=== PATIENT | male | born 1965 | race Asian ===

== ENCOUNTER 2024-07-18 12:49 | Emergency (ER) | payer OTHER, SELFPAY ==
[2024-07-18] VITALS (10 sets, daily range): BP systolic 124–160; BP diastolic 65–82; PULSE 59–118; RESP 18; TEMP 36; O2SAT 94–100; BMI 24.2
--- NOTE | 2024-07-18 12:56 | DI.RAD.S_ITS ---
PROCEDURE: XR CHEST 1V INDICATIONS: chest pain TECHNIQUE: One view of the chest was acquired. COMPARISON: None. FINDINGS: Surgical changes and devices: None. Lungs and pleura: Lungs are clear. No pleural effusions or pneumothorax. Mediastinum: Mediastinal contours appear normal. Heart size is normal. Bones and chest wall: No suspicious bony lesions. Overlying soft tissues appear unremarkable. IMPRESSION: No acute cardiopulmonary abnormality is seen. Dictated by: Adrian Urbina M.D. on 07/18/2024 at 13:29 Approved by: Adrian Urbina M.D. on 07/18/2024 at 13:29
--- NOTE | 2024-07-18 13:01 | EKG_ITS ---
[address] [address] Test Date: 2024-07-18 Pat Name: Gareth Wilkerson Department: [facility] Room: Gender: Male Communication And Outreach Manager: HALINA BLUNT : 1965 Requested By: Order Number: [id number] Reading MD: Luis Armando Vogel MD Measurements Intervals [place] Rate: 83 P: 67 NV: 160 QRS: 88 QRSD: 88 T: 74 QT: 366 QTc: 430 Interpretive Statements Normal sinus rhythm Septal infarct , age undetermined Electronically Signed On 07-18-2024 14:10:15 PST by Luis Armando Vogel MD
[2024-07-18 13:08] LABS: Add Manual Diff / Slide Review NO; Basophils Absolute Auto 0 /uL (0-100); Basophils Percent Auto 0.6 % (0-2); Eosinophils Absolute Auto 100 /uL (0-450); Eosinophils Percent Auto 2.2 % (2-4); Hematocrit 43.5 % (41-53); Hemoglobin 15.1 g/dL (13.5-17.5); Lymphocytes Absolute Auto 2000 /uL (1100-4500); Lymphocytes Percent Auto 31.2 % (25-40); Mean Corpuscular HGB Conc 34.6 % (30-36); Mean Corpuscular Hemoglobin 31.4 PG (26-34); Mean Corpuscular Volume 90.6 fL (80-100); Monocytes Absolute Auto 500 /uL (0-900); Monocytes Percent Auto 7.9 % (3-14); Neutrophils Absolute Auto 3700 /uL (1500-7000); Neutrophils Percent Auto 58.1 % (50-75); Platelet Count 339 X10^3/uL (150-400); White Blood Cell Count 6.4 X10^3/uL (4.5-11.0)
[2024-07-18] MEDS: ASPIRIN 81 MG CHEW TAB 324 MG PO (13:08)
[2024-07-18 13:18] LABS: Prothrombin Time 11.8 SECONDS (9.4-12.5)
[2024-07-18 13:19] LABS: Alanine Aminotransferase 21 IU/L (<50); Albumin 4.7 g/dL (3.5-5.0); Albumin Globulin Ratio 1.5 (1.0-2.8); Alkaline Phosphatase 64 U/L (38-126); Aspartate Aminotransferase 33 IU/L (17-59); BUN Creatinine Ratio 14.2 (6-22); Bilirubin Total 0.6 mg/dL (0.2-1.3); Blood Urea Nitrogen 16 mg/dL (9-20); Calcium 9.3 mg/dL (8.4-10.2); Carbon Dioxide 28 mmol/L (22-32); Chloride 103 mmol/L (98-107); Creatine Kinase 125 U/L (55-170); Estimated Glomerular Filt Rate > 60 mL/min (>60); Globulin 3.1 g/dL (1.7-4.1); Glucose 87 mg/dL (70-100); HEMOLYSIS < 15 (0-50); Lipase 94 U/L (23-300); Magnesium 2.2 mg/dL (1.6-2.3); Potassium 3.8 mmol/L (3.4-5.1); Sodium 140 mmol/L (137-145); Total Protein 7.8 g/dL (6.3-8.2)
[2024-07-18 13:20] LABS: PTT Partial Thromboplastin Tim 39 SECONDS (25.1-36.5)
[2024-07-18 13:31] LABS: NT-proBNP (BNP-Adult 18+) < 20 pg/mL (<125); Troponin I < 0.012 ng/mL (0.01-0.034)
--- NOTE | 2024-07-18 15:10 | EKG_ITS ---
[address] [address] [address] [address] Test Date: 2024-07-18 Pat Name: Gareth Wilkerson Department: Room: Gender: Male Automotive Instructor: SILKE : 1965 Requested By: Order Number: [id number] Reading MD: Luis Armando Vogel MD Measurements Intervals [place] Rate: 61 P: 31 ID: 150 QRS: 87 QRSD: 90 T: 76 QT: 392 QTc: 394 Interpretive Statements Normal sinus rhythm Electronically Signed On 07-18-2024 15:26:31 PST by Luis Armando Vogel MD
[2024-07-18 15:57] LABS: Troponin I < 0.012 ng/mL (0.01-0.034)
--- NOTE | 2024-07-18 16:48 | ED_ITS ---
HPI - Chest Pain General Chief Complaint: Chest Pain Stated Complaint: EKG at PCP got sent to ED Time Seen by Provider: 07/18/24 16:48 Source: patient Mode of arrival: Ambulatory Limitations: no limitations History of Present Illness HPI narrative: 59-year-old male without any significant past medical history presents to the ED from home for abnormal EKG, this was performed by his PCP. Patient states that he was having some chest pain lasted approximately no more than 5 minutes but is not having any chest pain currently, states it has been ongoing intermittent for the past 2 weeks. He denies any other symptoms such as headache visual disturbances shortness breath fever chills nausea vomiting abdominal pain or any other GI/ symptoms time. Related Data Allergies Allergy/AdvReac Type Severity Reaction Status Date / Time No Known Drug Allergies Allergy Verified 07/18/24 12:52 Review of Systems Review of Systems Narrative: General: Denies fever, chills, weight loss HEENT: Denies headache, eye drainage, eye irritation, head trauma, sore throat, voice change Cardiovascular: Positive chest pain, abnormal EKG, palpitations, shortness of breath, tachycardia Respiratory: Denies any shortness of breath, cough, wheeze, stridor GI/: Denies any abdominal pain, nausea, vomiting, diarrhea, bright red blood per rectum, melanotic stools, urinary frequency, urinary retention, dysuria, hematuria MSK: Denies any joint pain, muscle pains, swelling Skin: Denies any rashes, lesions, discoloration Neuro: Denies any headache, lightheadedness, dizziness, fainting, weakness Psych: Denies SI/HI Patient History Social History Smoking Status: Never smoker Smoking Status: Never smoker Exam Initial Vital Signs Initial Vital Signs: Vital Signs Temperature 96.8 F L 07/18/24 12:52 Pulse Rate 88 07/18/24 12:52 Respiratory Rate 18 07/18/24 12:52 Blood Pressure 142/72 H 07/18/24 12:52 Pulse Oximetry 100 07/18/24 12:52 Oxygen Delivery Method Room Air 07/18/24 12:52 Course Orders Ordered: ED Orders 07/18/24 12:55 Complete Blood Count AUTO DIFF Stat Comprehensive Metabolic Panel Stat Lipase Stat Magnesium Stat NT-proBNP (BNP-Adult 18+) Stat PTT Partial Thromboplastin Kristopher Stat Prothrombin Time INR Stat Troponin & CK Cardiac Panel Stat 07/18/24 12:56 XR chest 1V Stat EKG-12 Lead Stat 07/18/24 15:10 EKG-12 Lead Stat 07/18/24 15:18 Trop I [Troponin I] Stat Discontinued Medications Aspirin (Aspirin 81 Mg Chew Tab) 324 mg PO NOW ONE Stop: 07/18/24 12:57 Last Admin: 07/18/24 13:08 Dose: 324 mg Documented By: KARRI Vital Signs Vital signs: Vital Signs - 8 hr 07/18/24 12:52 Temperature 96.8 F L Pulse Rate 88 Respiratory Rate 18 Blood Pressure 142/72 H Pulse Oximetry 100 Oxygen Delivery Method Room Air MDM - Chest Pain Differential Diagnosis Differential diagnosis: Likely st elevation myocardial infarction, costochondritis, chest pain and other (Pneumonia, electrolyte abnormality,) Lab Data 07/18/24 12:55 07/18/24 12:55 Labs: Lab Results 07/18/24 07/18/24 Range/Units 12:55 15:18 WBC 6.4 (4.5-11.0) X10^3/uL RBC 4.80 (4.5-5.9) X10^6/uL Hgb 15.1 (13.5-17.5) g/dL Hct 43.5 (41-53) % MCV 90.6 (80-100) fL MCH 31.4 (26-34) PG MCHC 34.6 (30-36) % RDW 13.0 (11.6-14.8) % Plt Count 339 (150-400) X10^3/uL Neut % (Auto) 58.1 (50-75) % Lymph % (Auto) 31.2 (25-40) % [place] % (Auto) 7.9 (3-14) % Eos % (Auto) 2.2 (2-4) % Baso % (Auto) 0.6 (0-2) % Neut # (Auto) 3700 (5351-8110) /uL Lymph # (Auto) 2000 (1936-3890) /uL [place] # (Auto) 500 (0-900) /uL Eos # (Auto) 100 (0-450) /uL Baso # (Auto) 0 (0-100) /uL PT 11.8 (9.4-12.5) SECONDS INR 1.0 (0.9-1.3) APTT 39 H (25.1-36.5) SECONDS Sodium 140 (137-145) mmol/L Potassium 3.8 (3.4-5.1) mmol/L Chloride 103 (98-107) mmol/L Carbon Dioxide 28 (22-32) mmol/L BUN 16 (9-20) mg/dL Creatinine 1.13 (0.66-1.25) mg/dL Estimated GFR > 60 (>60) mL/min BUN/Creatinine Ratio 14.2 (6-22) Glucose 87 (70-100) mg/dL Calcium 9.3 (8.4-10.2) mg/dL Magnesium 2.2 (1.6-2.3) mg/dL Total Bilirubin 0.6 (0.2-1.3) mg/dL AST 33 (17-59) IU/L ALT 21 (<50) IU/L Alkaline Phosphatase 64 (38-126) U/L Total Creatine Kinase 125 (55-170) U/L Troponin I < 0.012 < 0.012 (0.01-0.034) ng/mL NT-Pro-B Natriuret Pep < 20 (<125) pg/mL Total Protein 7.8 (6.3-8.2) g/dL Albumin 4.7 (3.5-5.0) g/dL Globulin 3.1 (1.7-4.1) g/dL Albumin/Globulin Ratio 1.5 (1.0-2.8) Lipase 94 (23-300) U/L Imaging Data Chest x-ray: Radiologist's Impression: [place] [address] XRay Report Signed Patient: Gareth Wilkerson MR#: [id number] : 1965 Acct:[id number] Age/Sex: 59 / M Date of Service: 07/18/24 Loc: ED Accession Number: [id number] Procedure: XR chest 1V Ordering Provider: Perry Rodriguez D.O. PROCEDURE: XR CHEST 1V INDICATIONS: chest pain TECHNIQUE: One view of the chest was acquired. COMPARISON: None. FINDINGS: Surgical changes and devices: None. Lungs and pleura: Lungs are clear. No pleural effusions or pneumothorax. Mediastinum: Mediastinal contours appear normal. Heart size is normal. Bones and chest wall: No suspicious bony lesions. Overlying soft tissues appear unremarkable. IMPRESSION: No acute cardiopulmonary abnormality is seen. ECG Data Interpretation: Initial EKG interpreted ED physician, sinus at 83 beats per minute QTC [address] changes no STEMI Repeat EKG sinus 61 QTC [address] changes no STEMI MDM Narrative Medical decision making narrative: 59-year-old male without any significant past medical history presents for intermittent chest pain ongoing persistent for the past several weeks, went to his primary care doctor and was sent into the ED for abnormal EKG. Patient had lab work imaging performed here chest x-ray without any acute cardiopulmonary abnormalities, EKG nonischemic x2, troponin negative x2. Patient with a heart score of 1 for age. Patient's remaining lab work unremarkable. He was instructed to follow up with primary care and Cardiology for stress test echo. He was given strict return precautions he verbalized understanding of this and agrees to being discharged home with outpatient follow up Discharge Plan Departure Patient Disposition: Home Clinical Impression: Chest pain Instructions: DI for Chest Pain Activity Restrictions/Additional Instructions: Please follow up with Cardiology and primary care Please read the discharge instructions sheet carefully and bring all papers to all doctor follow-up visits, as it may contain information that your doctor may want to see. Disease processes change and evolve, if your symptoms worsen or if you develop any new symptoms that are concerning to you please return for evaluation. Your evaluation today does not show any evidence of any life- threatening/serious illnesses requiring admission to the hospital or surgery. Please follow-up with your doctor for re-evaluation in approximately 1 day. Seek immediate medical attention for any worrisome symptoms. *If you do not have a primary care provider please contact the [facility] Resource line at [phone]. They will ask some questions about your medical history and help get you set up with a doctor in the community. Referrals: Ady Huynh MD [Physician] - Stand Alone Forms: Patient Portal/API/Survey
== END 2024-07-18 17:14 | disposition home or self-care (01) ==
PROVIDERS: Emergency Provider Student in an Organized Health Care Education/Training Program
DX: R07.9 Chest pain, unspecified (principal)
CPT/HCPCS: 36415; 71045; 80053; 82550; 83690; 83735; 83880; 84484; 85025; 85610; 85730; 93005; 99283; 99284